=== PATIENT | female | born 1955 | race Caucasian/White ===

== ENCOUNTER → 2017-02-28 | Outpatient (CLI) | payer OTHER ==
[2015-06-15 18:30] VITALS: BP 161/74
[~2017-02-28] MED LIST: SERT100T PO
--- NOTE | 2017-02-28 08:43 | RAD ---
AP and lateral left forearm radiographs 02/28/2017 Clinical history: Left forearm swelling. The patient fell down stairs one day ago. AP and lateral digital radiographs of the left forearm were obtained. A transverse nondisplaced fracture of the distal diaphysis of the left ulna is seen. The fracture is approximately 5 to 6 cm proximal to the left wrist. No additional fracture is noted. Impression: Nondisplaced fracture of the distal left ulna.
== END | disposition home or self-care (01) ==
LOC: DXRADRC 07:26
PROVIDERS: ATTEND Physician Assistant Medical
DX: S52.602A Unspecified fracture of lower end of left ulna, initial encounter for closed fracture (principal); W10.9XXA Fall (on) (from) unspecified stairs and steps, initial encounter; Y93.89 Activity, other specified; Y92.89 Other specified places as the place of occurrence of the external cause; Y99.8 Other external cause status
CPT/HCPCS: 73090

== ENCOUNTER 2017-03-19 08:55 | Emergency (ER) | payer OTHER ==
[2017-03-19 09:00] VITALS: BP 149/79
--- NOTE | 2017-03-19 09:27 | RAD ---
Exam: Left wrist radiograph 03/19/2017 at 0915 hours Indication: Left wrist pain, fracture Comparison: Left forearm radiograph 02/28/2017 Technique: 3 views of the left wrist are provided. Findings: Fiberglass cast overlies the left forearm and left wrist limiting fine osseous detail. Redemonstration of a transverse fracture involving the distal ulna. No joint space narrowing. No soft tissue swelling. No osseous erosion or soft tissue gas. Bone mineralization is within normal limits. Impression: Interval casting of a distal ulnar fracture without significant displacement.
--- NOTE | 2017-03-19 09:31 | PHYS DOC ---
General Chief Complaint: UPPER EXTREMITY PAIN Stated Complaint: L FOREARM PAIN Time Seen by MD: 09:00 Source: patient, old records Problems: History of Present Illness Initial Comments Patient is a 62-year-old female who was sent to the emergency department for imaging this morning by her primary care doctor. Patient states she suffered a left distal ulna fracture in late February. It was casted by Rose Marie Romero and it hadn't been giving her any problems since that time. Patient states that last Tuesday she got caught in the covers getting out of bed and suffered a fall to prone position landing on her outstretched hands. Left wrist cast was in place the patient felt it would protect her from any injury. She says that since that fall she's had worsening discomfort in her left wrist. The pain is similar to the pain she felt at the initial fracture, she denies any sensory or motor loss to the fingers of her left hand, denies cold fingers or discolored digits. The pain is worse at night she says abdomen sometimes prevents her from sleep. She denies any other injuries from the fall and has no other complaints. She mentions that she thinks she took her last hydrocodone yesterday. She did go to her primary care doctor's office this morning however they do not have x-ray capability so they sent her here for evaluation Onset: other Severity: moderate Pain/Injury Location: left wrist Method of Injury: fell Modifying Factors: worse with jarring, worse with movement, improves with pain medication, improves with rest Allergies: Coded Allergies: Tetracyclines (Verified Allergy, Mild, sensitivity, 03/09/16) vomiting amoxicillin (Verified Allergy, Mild, sensitivity , 03/09/16) vomiting clavulanic acid (Verified Allergy, Mild, sensitivity , 03/09/16) vomiting codeine (Verified Allergy, Mild, sensitivity, 03/09/16) vomiting erythromycin base (Verified Allergy, Mild, sensitivity, 06/15/15) vomiting Past Medical History Medical History: other (depression) Surgical History: noncontributory (right total knee replacement) Social History Smoker: cigarettes Alcohol: occasionally Drugs: none Review of Systems Constitutional: denies chills, denies fever Respiratory: denies cough, denies shortness of breath Cardiovascular: denies chest pain, denies palpitations Gastrointestinal: denies nausea, denies vomiting Musculoskeletal: see HPI Psychiatric/Neurological: see HPI Physical Exam General Appearance: WD/WN, no apparent distress HEENT: normal ENT inspection Neck: non-tender, supple Cardiovascular/Respiratory: normal peripheral pulses, no respiratory distress Back: no CVA tenderness, no vertebral tenderness Elbow/Forearm: non-tender (a cast is in place of the left forearm and wrist. The patient is neurovascularly intact distal to the cast, capillary refill is normal and symmetric there is no swelling or discoloration or temperature asymmetry between right and left upper extremity fingers. The cast is somewhat dirty but overall completely intact the patient is uninjured above the wrist) Neurologic/Tendon: normal sensation, normal motor functions, normal tendon functions, responds to pain, no evidence tendon injury Psychiatric: alert, oriented x 3 Skin: normal color, warm/dry Orders, Labs, Meds PATIENT: ADAM LUONG ACCOUNT: [id number] : 1955 LOCATION: ER AGE: 62 SEX: F EXAM STATUS: REG ER ORD. PHYSICIAN: JAYASHREE ORTEGA DO REASON: casted, h/o fx. Fell again last Sat increased pain PROCEDURE: WRIST 3V LEFT Exam: Left wrist radiograph 03/19/2017 at 0915 hours Indication: Left wrist pain, fracture Comparison: Left forearm radiograph 02/28/2017 Technique: 3 views of the left wrist are provided. Findings: Fiberglass cast overlies the left forearm and left wrist limiting fine osseous detail. Redemonstration of a transverse fracture involving the distal ulna. No joint space narrowing. No soft tissue swelling. No osseous erosion or soft tissue gas. Bone mineralization is within normal limits. Impression: Interval casting of a distal ulnar fracture without significant displacement. DICTATED AND SIGNED BY: KILLIAN CHIN MD DATE: 03/19/17922 CC: JAIMIE LINDER APRN; JAYASHREE ORTEGA DO ~ Patient was advised to stop smoking. I discussed signs and symptoms to monitor for that would indicate there could be an issue with the cast or swelling within the cast. Patient is reassured that there is no new bony abnormalities and no new soft tissue swelling underlying material. I discussed indications to return emergently as well as follow-up with Jordan Madden next week. Patient expressed agreement and understanding of the treatment plan. Departure Time of Disposition: 09:37 Disposition: 01 HOME, SELF-CARE Diagnosis: distal left ulna fx, fall, pain control Condition: GOOD Patient Instructions: Cast Care-SportsMed, Ulnar Collateral Ligament Injury of the Thumb-SportsMed Additional Instructions: Continue past and fracture care as before. [id number] ibuprofen for baseline discomfort. Prescription: [place] 5 mg #15 take with food as directed. Follow-up with Rose Marie Romero next week for recheck. Return to ED with new or changing symptoms. JAYASHREE ORTEGA DO Mar 19, 2017 09:31
[2017-03-19] MEDS ORDERED: HYDR-971 PO (09:40)
== END 2017-03-19 09:45 | disposition home or self-care (01) ==
LOC: ER 08:55
DX: S52.602A Unspecified fracture of lower end of left ulna, initial encounter for closed fracture (principal); F17.210 Nicotine dependence, cigarettes, uncomplicated; Z88.1 Allergy status to other antibiotic agents; Z88.5 Allergy status to narcotic agent; W06.XXXA Fall from bed, initial encounter; Y93.89 Activity, other specified; Y99.8 Other external cause status; Y92.89 Other specified places as the place of occurrence of the external cause
CPT/HCPCS: 73110; 99284

== ENCOUNTER → 2017-04-06 | Outpatient (CLI) | payer OTHER ==
[2017-03-19 09:00] VITALS: BP 149/79
[~2017-04-06] MED LIST changes: +HYDR-971 PO
--- NOTE | 2017-04-06 15:33 | RAD ---
Left wrist, 2 views, 04/06/2017: History: Follow-up ulnar fracture Images were obtained through a radiopaque cast compromising bony detail. Comparison is made to a study from 03/19/2017. There is increasing callus formation at the site of the distal ulnar fracture. The fracture remains nondisplaced. Portions of the fracture line are still visible. No new bony abnormality is seen. IMPRESSION: Healing nondisplaced distal ulnar fracture.
== END | disposition home or self-care (01) ==
LOC: DXRADRC 15:02
PROVIDERS: ATTEND Physician Assistant
DX: S52.692D Other fracture of lower end of left ulna, subsequent encounter for closed fracture with routine healing (principal); M25.732 Osteophyte, left wrist; X58.XXXD Exposure to other specified factors, subsequent encounter
CPT/HCPCS: 73100

== ENCOUNTER → 2017-04-19 | Outpatient (CLI) | payer OTHER ==
--- NOTE | 2017-04-19 08:36 | RAD ---
Indication follow-up fracture. AP and lateral views of the left wrist were obtained. Comparison is made to a study 04/06/2017. Healing ulnar diaphyseal fracture is noted. There has been further callus formation at the fracture site. No new or unexpected finding is seen. IMPRESSION: Healing ulnar fracture
== END | disposition home or self-care (01) ==
LOC: DXRADRC 07:28
PROVIDERS: ATTEND Physician Assistant Medical
DX: S62.102D Fracture of unspecified carpal bone, left wrist, subsequent encounter for fracture with routine healing (principal); M25.732 Osteophyte, left wrist; X58.XXXD Exposure to other specified factors, subsequent encounter
CPT/HCPCS: 73100

== ENCOUNTER → 2017-11-22 | Outpatient (CLI) | payer OTHER ==
--- NOTE | 2017-11-23 08:46 | RAD ---
EXAM: MAMMO DANDY SCREENING BILATERAL. HISTORY: Screening. COMPARISON: 06/11/2016, 12/05/2014, 06/09/2012. FINDINGS: 2-D and 3-D tomosynthesis mammograms were obtained of both breasts in the CC and MLO projections. Computer-aided detection (CAD) was utilized. The breast parenchyma is primarily fatty (tissue density A). No dominant suspicious mass, suspicious microcalcifications, or architectural distortion is identified. Scattered, benign-appearing calcifications are present within both breasts. IMPRESSION: No mammographic evidence of malignancy. BI-RADS CATEGORY: 2 BENIGN FINDING RECOMMENDED FOLLOW-UP: 12M 12 MONTH FOLLOW-UP PQRS compliance statement: Patient information was entered into a reminder system with a target due date for the next mammogram. Mammography is a sensitive method for finding small breast cancers, but it does not detect them all and is not a substitute for careful clinical examination. A negative mammogram does not negate a clinically suspicious finding and should not result in delay in biopsying a clinically suspicious abnormality. "Our facility is accredited by the [employer] Mammography Program."
== END | disposition home or self-care (01) ==
LOC: MAMMO 08:57
PROVIDERS: ATTEND Nurse Practitioner Family
DX: Z12.31 Encounter for screening mammogram for malignant neoplasm of breast (principal)
CPT/HCPCS: 77063; 77067

== ENCOUNTER → 2018-07-26 | Outpatient (CLI) | payer OTHER ==
[~2018-07-26] MED LIST changes: +HYDR-3165 PO; -HYDR-971 PO
--- NOTE | 2018-07-26 15:13 | RAD ---
Chest, 2 views, 07/26/2018: HISTORY: Cough, COPD The heart size and pulmonary vascularity are normal. No pulmonary infiltrate is seen. There is no evidence of pleural fluid. Moderate spurring is present in the spine. IMPRESSION: No acute cardiopulmonary abnormality is detected. Electronically signed by: Leandro Grijalva MD (07/26/2018 3:09 PM) [facility]
== END | disposition home or self-care (01) ==
LOC: RAD 14:48
PROVIDERS: ATTEND Physician Assistant Medical
DX: J44.9 Chronic obstructive pulmonary disease, unspecified (principal)
CPT/HCPCS: 71046

== ENCOUNTER → 2019-06-07 | Outpatient (CLI) | payer OTHER ==
--- NOTE | 2019-06-07 16:06 | RAD ---
EXAM: Dual energy x-ray absorptiometry (DEXA). HISTORY: Postmenopausal female presents for osteoporosis screening. COMPARISON: 06/25/2015. TECHNIQUE: Dual energy x-ray absorptiometry of the lumbar spine and right hip was performed. Calculation of bone mineral density based on standard deviations above or below the expected young adult normal value (T-score) was completed. FINDINGS: The average bone mineral density in the 1st through 4th lumbar vertebrae is 1.279 g/cmxcm, corresponding with a T-score of 0.8. There has been a 4.6% decrease in density of the lumbar spine compared to the prior study. The average total bone mineral density in the right hip is 0.822 g/cmxcm, corresponding with a T-score of -1.1. There has been a 5.7% decrease in density of the right hip compared to the prior study. IMPRESSION: 1. Osteopenia measured at the right hip. 2. Normal bone mineral density measured at the lumbar spine Note: Definitions established by the World Health Organization: 1. Normal: T-score is -1.0 or above. 2. Osteopenia: T-score is between -1.0 and -2.5 . 3. Osteoporosis: T-score is -2.5 or below. Electronically signed by: Olinda Mclaughlin MD (06/07/2019 4:03 PM) [facility]
--- NOTE | 2019-06-08 11:05 | RAD ---
DATE: June 07, 2019 EXAM: MAMMO DANDY SCREENING BILATERAL HISTORY: Screening study. COMPARISON: 2015 and 2017 This study was interpreted with the benefit of Computerized Aided Detection (CAD). 2-D digital mammographic views of both breasts were performed in the CC and MLO projections. 3-D digital tomosynthesis images of both breasts were performed in the CC and MLO projections and reviewed on a computer workstation. FINDINGS: Breast Density: FATTY The breast parenchyma is primarily fatty replaced. Breast parenchyma level density A.. There are no dominant suspicious masses, suspicious microcalcifications or evidence of architectural distortion. IMPRESSION: No mammographic indicators for malignancy. BI-RADS CATEGORY: 1 NEGATIVE RECOMMENDED FOLLOW-UP: 12M 12 MONTH FOLLOW-UP PQRS compliance statement: Patient information was entered into a reminder system with a target due date June 08, 2020 for the next mammogram. Mammography is a sensitive method for finding small breast cancers, but it does not detect them all and is not a substitute for careful clinical examination. A negative mammogram does not negate a clinically suspicious finding and should not result in delay in biopsying a clinically suspicious abnormality. "Our facility is accredited by the [employer] Mammography Program." The patient's breast density may affect the ability of mammography to detect breast cancer. There are 4 categories of breast density, A, B, C and D. Breast density A means that most of the breast tissue is replaced with adipose tissue and therefore is not dense. Breast density B means that the breast tissue is mildly dense and scattered. Breast density C means that the breast tissue is heterogeneously dense. Breast density D means that the breast tissue is very dense. Breast densities especially C and D may decrease the sensitivity of mammography to detect breast cancer. Therefore, the patient may benefit from 3-D breast mammography (3D breast tomography) as a part of their screening mammogram. Insurance may or may not pay for this additional imaging. The patient's breast density based on today's mammogram is category A.
== END | disposition home or self-care (01) ==
LOC: DXRAD 14:41
PROVIDERS: ATTEND Physician Assistant Medical
DX: Z12.31 Encounter for screening mammogram for malignant neoplasm of breast (principal); M85.88 Other specified disorders of bone density and structure, other site; N95.9 Unspecified menopausal and perimenopausal disorder
CPT/HCPCS: 77063; 77067; 77080

== ENCOUNTER 2019-10-16 03:47 | Emergency (ER) | payer MEDICARE, OTHER ==
[~2019-10-16] VITALS: Ht 160 cm; Wt 82.0 kg
[2019-10-16] MEDS ORDERED: KETOROLAC 60 MG/2 ML VIAL. IM ONE (05:00)
--- NOTE | 2019-10-16 05:35 | RAD ---
EXAM: CT pelvis without contrast DATE: 10/16/2019 4:30 AM COMPARISON: No prior INDICATION: Fall, pelvic pain TECHNIQUE: CT of the pelvis was performed without IV contrast. Axial coronal and sagittal reformatted images were generated. PQRS compliance statement - One or more of the following individualized dose reduction techniques were utilized for this study: 1. Automated exposure control 2. Adjustment of the mA and/or kV according to patient size 3. Use of iterative reconstruction technique FINDINGS: Left hip joint osteoarthritis with small marginal osteophytes. No definite acute fracture is seen. No pubic symphysis or SI joint diastases. On the marginal evaluation the pelvis, no pelvic mass, lymphadenopathy or ascites. IMPRESSION: No evidence for acute fracture of the pelvis. Electronically signed by: Raza Bennett MD (10/16/2019 5:32 AM) [facility]
--- NOTE | 2019-10-16 05:38 | RAD ---
EXAM: CT lumbar spine without IV contrast CLINICAL HISTORY:Fall, low back pain. COMPARISON: None available. TECHNIQUE: Helical CT was performed through the lumbar spine. Axial, coronal and sagittal reformatted images were generated. PQRS compliance statement - One or more of the following individualized dose reduction techniques were utilized for this study: 1. Automated exposure control 2. Adjustment of the mA and/or kV according to patient size 3. Use of iterative reconstruction technique FINDINGS: There is approximately 30 percent height loss of the L2 vertebral body with cortical offset anteriorly consistent with acute fracture. No significant involvement of the posterior wall. No significant osseous retropulsion into the central canal. Otherwise vertebral body heights are preserved. No other acute fracture of the lumbar spine is identified. Disc heights are grossly preserved. No specific and spondylolisthesis. Decreased bone mineral density. L1-L2: Mild generalized disc bulge results in mild central canal stenosis without significant neural foraminal narrowing. L2-L3: Generalized disc bulge results in mild central canal stenosis with mild bilateral neural foraminal narrowing. L3-L4: Generalized disc bulge and ligamentum flavum hypertrophy results in mild central canal stenosis with mild inferior neural foraminal narrowing bilaterally. L4-L5: Diffuse generalized disc bulge with ligamentum flavum hypertrophy and facet degenerative changes with mildly prominent epidural fat results in moderate central canal stenosis with mild to moderate bilateral inferior neural foraminal narrowing. L5-S1: No significant thecal sac deformity or neural foraminal narrowing. Subtle linear opacities in the lower lobes bilaterally likely scarring/atelectasis. IMPRESSION: 1. Acute compression fracture of L2 vertebral body with approximately 30 percent height loss. 2. Multilevel spondylosis as above 3. No spondylolisthesis. Electronically signed by: Raza Bennett MD (10/16/2019 5:35 AM) [facility]
--- NOTE | 2019-10-16 05:43 | PHYS DOC ---
Past History Past Medical History: Arthritis, Depression, Hypertension, Other Past Surgical History: Knee Replacement Alcohol Use: Occasionally Drug Use: None General Adult EDM: Chief Complaint: BACK INJURY HPI: HPI: '' ...I stepped on a ball.. that my dog....Angelique.. plays with..He is a [place]..He is a pain in the ass... but I love him...".." I landed on my back.. that was about 9 pm... but I am still hurting... I need... a shot .. maybe a dose of a narcotic.. so I can get to sleep tonight...".. " I took some Tramadol earlier.. it has done nothing..." " .. I used some topical BenGay-like stuff and heat packs but it has not helped either..." Patient is a 64 year old female who presents with above hx and complaints of pelvic and lower back pain after a fall. Patient injury occurred approximately 2100 hrs. Since that time she has continued lumbar sacral and pelvic pain. Patient denies any problems with defecation or urination. Patient denies any history of osteoporosis and reporting last bone scan was in the normal range. Patient requesting a shot of the narcotic however did drive herself here. Patient localizes pain to the paralumbar area and bilateral hips. Patient is ambulatory with a guarded gait. Patient denies any history immunosuppression. Patient denies any recent travel outside the [place] area. Patient normally follows with [facility] for health care. Review of Systems: Review of Systems: Constitutional: Denies fever or chills Eyes: Denies change in visual acuity HENT: Denies nasal congestion or sore throat Respiratory: Denies cough or shortness of breath Cardiovascular: Denies chest pain or edema GI: Denies abdominal pain, nausea, vomiting, bloody stools or diarrhea : Denies dysuria Musculoskeletal: Denies back pain or joint pain Integument: Denies rash Neurologic: Denies headache, focal weakness or sensory changes Endocrine: Denies polyuria or polydipsia Lymphatic: Denies swollen glands Psychiatric: Denies depression or anxiety Heart Score: Risk Factors: Risk Factors: DM, Current or recent (<one month) smoker, HTN, HLP, family history of CAD, obesity. Risk Scores: Score 0 - 3: 2.5% MACE over next 6 weeks - Discharge Home Score 4 - 6: 20.3% MACE over next 6 weeks - Admit for Clinical Observation Score 7 - 10: 72.7% MACE over next 6 weeks - Early Invasive Strategies Family History: Family History: Noncontributory to presentation Current Medications: Current Meds: See nursing for home meds Current Medications Medications (Trade) Dose Ordered Sig/Waldo Start Time Stop Time Status Last Admin Dose Admin Ketorolac Tromethamine (Toradol Im) 60 mg 1X ONCE 10/16/19 05:00 10/16/19 05:01 DC 10/16/19 05:12 60 MG Allergies: Allergies: Allergies Coded Allergies Type Severity Reaction Last Updated Verified Tetracyclines Allergy Mild sensitivity 03/09/16 Yes amoxicillin Allergy Mild sensitivity 03/09/16 Yes clavulanic acid Allergy Mild sensitivity 03/09/16 Yes codeine Allergy Mild sensitivity 03/09/16 Yes erythromycin base Allergy Mild sensitivity 06/15/15 Yes Physical Exam: PE: Constitutional: Moderate acute distress, non-toxic appearance. [] HENT: Normocephalic, atraumatic, bilateral external ears normal, oropharynx moist, no oral exudates, nose normal. [] Eyes: PERRLA, EOMI, conjunctiva normal, no discharge. [] Neck: Normal range of motion, no tenderness, supple, no stridor. [] Cardiovascular:Heart rate regular rhythm, no murmur [] PMI slightly to the left Lungs & Thorax: Bilateral breath sounds equal at apex with a few scattered wheezes auscultation [] Abdomen: Bowel sounds normal, soft, no tenderness, no masses, no pulsatile masses. No saddle loss. Bilateral hip tenderness on palpation. Skin: Warm, dry, no erythema, no rash. [] Back: Lumbar sacral tenderness, no CVA tenderness. [] Extremities: No tenderness, no cyanosis, no clubbing, ROM intact, no edema. [] DTRs +2 patella brachial. Distal sensation intact. No pain with straight leg lift. Neurologic: Alert and oriented X 3, moves all extremities on request, has distal sensory function, no gross focal deficits noted. [] Psychologic: Affect anxious, judgement normal, mood normal. [] Current Patient Data: Vital Signs: Vital Signs Date Time Temp Pulse Resp B/P (MAP) Pulse Ox O2 Delivery O2 Flow Rate FiO2 10/16/19 03:47 98.4 84 18 178/98 (124) 98 Room Air EKG: EKG: [] Radiology/Procedures: Radiology/Procedures: IMAGING REPORT Signed PATIENT: ADAM LUONG ACCOUNT: [id number] : 1955 LOCATION: ER AGE: 64 SEX: F EXAM STATUS: REG ER ORD. PHYSICIAN: WILFRED KIMBALL MD REASON: fall PROCEDURE: CT PELVIS WO CONTRAST EXAM: CT pelvis without contrast DATE: 10/16/2019 4:30 AM COMPARISON: No prior INDICATION: Fall, pelvic pain TECHNIQUE: CT of the pelvis was performed without IV contrast. Axial coronal and sagittal reformatted images were generated. PQRS compliance statement - One or more of the following individualized dose reduction techniques were utilized for this study: 1. Automated exposure control 2. Adjustment of the mA and/or kV according to patient size 3. Use of iterative reconstruction technique FINDINGS: Left hip joint osteoarthritis with small marginal osteophytes. No definite acute fracture is seen. No pubic symphysis or SI joint diastases. On the marginal evaluation the pelvis, no pelvic mass, lymphadenopathy or ascites. IMPRESSION: No evidence for acute fracture of the pelvis. Electronically signed by: Raza Vasquez MD (10/16/2019 5:32 AM) [facility] DICTATED AND SIGNED BY: RAZA VASQUEZ MD DATE: 10/16/19 0532 CC: WILFRED KIMBALL MD; TASHI CORONADO ~ [][address] [address] IMAGING REPORT Signed PATIENT: ADAM LUONG ACCOUNT: [id number] : 1955 LOCATION: ER AGE: 64 SEX: F EXAM STATUS: REG ER ORD. PHYSICIAN: WILFRED KIMBALL MD REASON: fall PROCEDURE: CT LUMBAR SPINE WO CONTRAST EXAM: CT lumbar spine without IV contrast CLINICAL HISTORY:Fall, low back pain. COMPARISON: None available. TECHNIQUE: Helical CT was performed through the lumbar spine. Axial, coronal and sagittal reformatted images were generated. PQRS compliance statement - One or more of the following individualized dose reduction techniques were utilized for this study: 1. Automated exposure control 2. Adjustment of the mA and/or kV according to patient size 3. Use of iterative reconstruction technique FINDINGS: There is approximately 30 percent height loss of the L2 vertebral body with cortical offset anteriorly consistent with acute fracture. No significant involvement of the posterior wall. No significant osseous retropulsion into the central canal. Otherwise vertebral body heights are preserved. No other acute fracture of the lumbar spine is identified. Disc heights are grossly preserved. No specific and spondylolisthesis. Decreased bone mineral density. L1-L2: Mild generalized disc bulge results in mild central canal stenosis without significant neural foraminal narrowing. L2-L3: Generalized disc bulge results in mild central canal stenosis with mild bilateral neural foraminal narrowing. L3-L4: Generalized disc bulge and ligamentum flavum hypertrophy results in mild central canal stenosis with mild inferior neural foraminal narrowing bilaterally. L4-L5: Diffuse generalized disc bulge with ligamentum flavum hypertrophy and facet degenerative changes with mildly prominent epidural fat results in moderate central canal stenosis with mild to moderate bilateral inferior neural foraminal narrowing. L5-S1: No significant thecal sac deformity or neural foraminal narrowing. Subtle linear opacities in the lower lobes bilaterally likely scarring/atelectasis. IMPRESSION: 1. Acute compression fracture of L2 vertebral body with approximately 30 percent height loss. 2. Multilevel spondylosis as above 3. No spondylolisthesis. Course & Med Decision Making: Course & Med Decision Making Pertinent Labs and Imaging studies reviewed. (See chart for details) Patient reports significant relief with Toradol injection. Requesting discharge home. Patient continue ice packs as needed. Patient take Tylenol and ibuprofen as needed for pain. For marked pain may take Vicoprofen up to 4 times a day. Patient also may take Flexeril 5 mg up to 3 times a day for muscle spasms. Patient to follow-up with primary care and review CT findings and make a plan for physical therapy or possible neurosurgery or consult to radiology for possible vertebroplasty after outpatient bone scan. Patient return if any concerns. Impression: 1. Fall 2. Contusions 3. Lumbosacral sprain 4. Acute compression fracture of L2 approximately 30% height loss-has mild disc bulge and central canal stenosis without significant neural foraminal narrowing. 5. Multilevel Lumber Sacral DJD and Hip changes. [] Dragon Disclaimer: Dragon Disclaimer: This electronic medical record was generated, in whole or in part, using a voice recognition dictation system. Departure Departure: Disposition: HOME/RESIDENCE PRIOR TO ADM Condition: STABLE Referrals: TASHI CORONADO (PCP) Scripts Cyclobenzaprine Hcl (CYCLOBENZAPRINE HCL) 5 Mg Tablet 5 MG PO TID PRN PRN for spasms, #30 TAB Prov: WILFRED KIMBALL MD 10/16/19 Hydrocodone/Ibuprofen (HYDROCODONE-IBUPROFEN 7.5-200 ) 1 Each Tablet 1 TAB PO PRN Q6HRS PRN for PAIN, #30 TAB 0 Refills Prov: WILFRED KIMBALL MD 10/16/19 Jelly Disclaimer This chart was dictated in whole or in part using Voice Recognition software in a busy, high-work load, and often noisy Emergency Department environment. It may contain unintended and wholly unrecognized errors or omissions. Dragon Disclaimer This chart was dictated in whole or in part using Voice Recognition software in a busy, high-work load, and often noisy Emergency Department environment. It may contain unintended and wholly unrecognized errors or omissions. WILFRED KIMBALL MD Oct 16, 2019 05:43
[2019-10-16] MEDS ORDERED: CYCL5TAB PO (05:58)
[2019-10-16] MEDS ORDERED: HYDR-1179 PO (05:58)
[2019-10-16 06:20] VITALS: BP 151/100
== END 2019-10-16 06:20 | disposition home or self-care (01) ==
LOC: ER 03:47
DX: S32.020A Wedge compression fracture of second lumbar vertebra, initial encounter for closed fracture (principal); M47.9 Spondylosis, unspecified; M47.896 Other spondylosis, lumbar region; M19.90 Unspecified osteoarthritis, unspecified site; I10 Essential (primary) hypertension; Z88.1 Allergy status to other antibiotic agents; Z88.5 Allergy status to narcotic agent; W18.39XA Other fall on same level, initial encounter; Y93.89 Activity, other specified; Y92.89 Other specified places as the place of occurrence of the external cause; Y99.8 Other external cause status
CPT/HCPCS: 72131; 72192; 96372; 99285; J1885

== ENCOUNTER → 2020-07-01 | Outpatient (CLI) | payer MEDICARE ==
[~2020-07-01] MED LIST changes: +CYCL5TAB PO; +HYDR-1179 PO
--- NOTE | 2020-07-02 09:34 | RAD ---
DATE: 07/01/2020 9:00 AM EXAM: MAMMO DANDY SCREENING BILATERAL HISTORY: Screening COMPARISON: 06/07/2019 Bilateral CC and MLO views of the breasts were performed. Bilateral breast tomosynthesis was performed in CC and MLO projections. This study was interpreted with the benefit of Computerized Aided Detection (CAD). FINDINGS: Breast Density: FATTY The Breast Parenchyma is primarily fatty replaced. Breast parenchyma level density A. No suspicious masses, microcalcifications or architectural distortion is present to suggest malignancy in either breast. The visualized axillae are unremarkable. IMPRESSION: No mammographic evidence of malignancy. BI-RADS CATEGORY: 1 NEGATIVE RECOMMENDED FOLLOW-UP: 12M 12 MONTH FOLLOW-UP Annual screening mammography is recommended, unless clinically indicated sooner based on symptoms or change in physical exam. PQRS compliance statement: Patient information was entered into a reminder system with a target due date for the next mammogram. Mammography is a sensitive method for finding small breast cancers, but it does not detect them all and is not a substitute for careful clinical examination. A negative mammogram does not negate a clinically suspicious finding and should not result in delay in biopsying a clinically suspicious abnormality. "Our facility is accredited by the [employer] Mammography Program."
== END ==
LOC: MAMMO 08:49
PROVIDERS: ATTEND Physician Assistant Medical
DX: Z12.31 Encounter for screening mammogram for malignant neoplasm of breast (principal)
CPT/HCPCS: 77063; 77067

== ENCOUNTER → 2020-12-04 | Outpatient (CLI) | payer MEDICARE ==
--- NOTE | 2020-12-04 17:56 | RAD ---
Examination: 3 views of the bilateral feet HISTORY: History of dropped heavy items on the feet, pain COMPARISON: None available Findings/ impression: The alignment of the tarsometatarsal, metatarsophalangeal, interphalangeal joints grossly appears unr emarkable. No acute fracture or dislocation. Minimal sclerotic appearance of the left second metatars al head probably old injury or Freiberg's infraction. Electronically signed by: Ayad Valadez MD (12/04/2020 5:53 PM) [id number]
== END ==
LOC: DXRAD 17:13
PROVIDERS: ATTEND Nurse Practitioner Family
DX: M25.571 Pain in right ankle and joints of right foot (principal); M25.572 Pain in left ankle and joints of left foot
CPT/HCPCS: 73630

== ENCOUNTER → 2021-05-12 | Outpatient (CLI) | payer MEDICARE ==
--- NOTE | 2021-05-12 08:24 | RAD ---
EXAM: ULTRASOUND ABDOMEN COMPLETE CLINICAL HISTORY: Reason: RUQ ABD PAIN / Spl. Instructions: / History: COMPARISON: None available. TECHNIQUE: Ultrasound of the upper abdomen was performed. FINDINGS: Pancreas is mostly obscured.. The liver measures 13.4 cm in length in the right mid clavicular line. Increased hepatic echogenicit y relative to the right kidney consistent with hepatic steatosis.. There are no focal liver lesions. Flow seen within the portal veins. The gallbladder is normal in appearance without evidence for cholelithiasis. There is no wall thicke danelle or pericholecystic fluid. There is no pain with direct transducer pressure over the gallbladder . The common bile duct measures 0.5 cm. The right kidney measures 9.9 cm in bipolar length. Normal renal cortical echotexture and thickness. No focal renal lesion, hydronephrosis or shadowing renal calculus. Visualized portions of the abdominal aorta and inferior vena cava are unremarkable. There is no free fluid in the upper abdomen. IMPRESSION: 1. Increased echogenicity of the liver, fatty liver. 2. Gallbladder is normal in sonographic appearance. Electronically signed by: Raza Bennett MD (05/12/2021 8:21 AM) [facility]
== END ==
LOC: US 07:38
PROVIDERS: ATTEND Physician Assistant Medical
DX: K76.0 Fatty (change of) liver, not elsewhere classified (principal)
CPT/HCPCS: 76705

== ENCOUNTER → 2021-07-09 | Outpatient (CLI) | payer MEDICARE ==
--- NOTE | 2021-07-09 09:48 | RAD ---
Bilateral digital screening 2-D and 3-D (digital breast tomosynthesis) mammogram: Reason for examination: Routine screening. Comparison: Mammograms from 07/01/2020 and 06/07/2019. Interpretation was made with the benefit of CAD. FINDINGS: Breast density: Category A. Breast tissue is almost entirely fatty. No suspicious breast mass, malignant appearing calcifications, or architectural distortion is seen. IMPRESSION: No evidence of malignancy. Assessment: BI-RADS 1. Negative. Recommendation: Routine screening mammograms. The patient will receive a letter with the results in the mail. Patient information will be entered i nto the mammography reminder system with a target recall date for the next mammogram. A reminder damien er will be generated. Electronically signed by: Rafaela Murillo MD (07/09/2021 9:46 AM) [id number]
== END ==
LOC: MAMMO 08:58
PROVIDERS: ATTEND Physician Assistant Medical
DX: Z12.31 Encounter for screening mammogram for malignant neoplasm of breast (principal)
CPT/HCPCS: 77063; 77067

== ENCOUNTER → 2021-09-03 | Outpatient (CLI) | payer MEDICARE ==
--- NOTE | 2021-09-03 09:41 | RAD ---
Exam: XR HIP (WITH OR WITHOUT PELVIS) 1 VIEW History: Worsening chronic pain. Comparison: None. Findings: AP view the pelvis with coned-down AP and frog-leg lateral views of the right hip and the left hip. O sseous mineralization is normal. No acute fracture or dislocaton. There is left greater than right me dial femoral acetabular joint space narrowing. Degenerative osteophytes bilaterally. Acute rami are i ntact. The sacroiliac joints are unremarkable. Impression: 1. Left greater than right hip degenerative changes. Electronically signed by: Drake Castro MD (09/03/2021 9:38 AM) [id number]
== END ==
LOC: RAD 07:38
PROVIDERS: ATTEND Nurse Practitioner Family
DX: M16.0 Bilateral primary osteoarthritis of hip (principal); M25.751 Osteophyte, right hip; M25.752 Osteophyte, left hip
CPT/HCPCS: 73521